=== PATIENT | female | born 1955 | race Caucasian/White ===

== ENCOUNTER → 2017-12-23 13:11 | Outpatient (CLI) | payer OTHER, SELFPAY ==
--- NOTE | 2017-12-23 | DI.US.S_ITS ---
PROCEDURE: US CAROTID DOPPLER BI INDICATIONS: LEFT EAR TINNITIUS/BILATERAL SENSORINEURAL HEARING TECHNIQUE: Color and pulse Doppler interrogation was performed of both carotid systems, with image documentation and velocity measurements. COMPARISON: None. FINDINGS: Stenosis calculations are based on SRU (S[employer] in [employer]) criteria. The flow velocities and the arterial waveforms are normal within both carotid arterial systems. No significant atherosclerotic plaque can be seen. The estimated degree of internal carotid artery stenosis is less than 50%. Antegrade flow is confirmed within both vertebral arteries. IMPRESSION: No hemodynamically significant stenosis is seen. Dictated by: Cole Amanda M.D. on 12/23/2017 at 14:42 Approved by: Cole Amanda M.D. on 12/23/2017 at 14:42
== END ==
PROVIDERS: PCP Physician Assistant Medical; Visit Provider Otolaryngology Facial Plastic Surgery
DX: H93.12 Tinnitus, left ear (principal); H90.3 Sensorineural hearing loss, bilateral
CPT/HCPCS: 93880

== ENCOUNTER → 2018-04-09 09:43 | Outpatient (CLI) | payer OTHER, SELFPAY ==
--- NOTE | 2018-04-09 09:45 | DI.MRI.S_ITS ---
PROCEDURE: MR SHOULDER LT WO CON INDICATIONS: LT SHOULDER PAIN TECHNIQUE: Noncontrast oblique coronal T2 fast spin echo with fat saturation, oblique sagittal T1 spin echo and T2 fast spin echo with fat saturation, axial T1 spin echo and T2 fast spin echo with fat saturation through the shoulder. COMPARISON: None. FINDINGS: Image quality: Excellent. Rotator cuff: The tendinosis and moderate grade articular and bursal surface partial-thickness tear involving distal supraspinatus at its insertion on greater tuberosity of humeral head extending to musculotendinous junction. Tendinosis and low grade articular and bursal surface partial-thickness tear involving distal infraspinatus at its insertion on greater tuberosity of humeral head extending to musculotendinous junction. Distal subscapularis tendinosis is seen. Sagittal images demonstrate mild supraspinatus muscle atrophy. Bones and bursae: No bone marrow contusions or fractures. 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 Mild glenohumeral joint osteoarthritis is also noted. The acromion demonstrates conventional anatomy, without an os acromiale. Small amount of fluid is seen within subacromial subdeltoid bursa. Capsule and soft tissues: In the absence of intra-articular contrast, there is signal abnormality and contour irregularity involving superior anterior labrum at 12 to 1:00 position. The glenohumeral ligaments appear intact. Tendinosis involving proximal intra-articular portion of the biceps tendon is seen. The rotator interval appears normal, without fibrosis. The coracohumeral ligament is normal in thickness. IMPRESSION: 1. Tendinosis and moderate grade articular and bursal surface partial-thickness tear involving distal supraspinatus at its insertion the humeral head extending to musculotendinous junction. Mild supraspinatus muscle atrophy. 2. Tendinosis and low-grade articular and bursal surface partial-thickness tear involving distal infraspinatus from its insertion the humeral head extending to musculotendinous junction. Distal subscapularis tendinosis. 3. Suggestion of focal superior anterior labral tear at 12 to 1:00 position. Tendinosis involving most proximal intra-articular portion of long head biceps tendon. Dictated by: Jarvis Mustafa M.D. on 04/11/2018 at 10:19 Approved by: Jarvis Mustafa M.D. on 04/11/2018 at 10:28
== END ==
PROVIDERS: PCP Physician Assistant Medical; Visit Provider Physician Assistant Medical
DX: M25.512 Pain in left shoulder (principal); M75.112 Incomplete rotator cuff tear or rupture of left shoulder, not specified as traumatic
CPT/HCPCS: 73221

== ENCOUNTER → 2018-11-21 06:16 | Outpatient (CLI) | payer BC, SELFPAY ==
--- NOTE | 2018-11-21 | DI.MRI.S_ITS ---
PROCEDURE: MR SHOULDER LT WO CON INDICATIONS: CHRONIC LEFT SHOULDER PAIN TECHNIQUE: Noncontrast oblique coronal T2 fast spin echo with fat saturation, oblique sagittal T1 spin echo and T2 fast spin echo with fat saturation, axial T1 spin echo and T2 fast spin echo with fat saturation through the shoulder. COMPARISON: [facility], MR, MR SHOULDER LT WO CON, 04/09/2018, 9:51. FINDINGS: Image quality: Excellent. Rotator cuff: Tendinosis and moderate grade articular and bursal surface partial-thickness tear involving distal supraspinatus and infraspinatus are seen at their insertions on greater tuberosity extending to the musculotendinous junction. Distal subscapularis tendinosis is seen. No full-thickness rotator cuff tendon rupture. Sagittal images demonstrate mild supraspinatus muscle atrophy. Bones and bursae: Mild to moderate acromioclavicular joint osteoarthritis is seen. No fracture or dislocation. Trace amount of fluid within subacromial subdeltoid bursa is seen. No gross intra-articular loose body. Capsule and soft tissues: In the absence of intra-articular contrast, there is suggestion of anterior inferior labral tear fell 4 to 6:00 position. The glenohumeral ligaments appear intact. The long head of the biceps tendon demonstrates normal location and morphology. The rotator interval appears normal, without fibrosis. The coracohumeral ligament is normal in thickness. IMPRESSION: 1. Tendinosis a moderate grade articular and bursal surface partial-thickness tear involving distal supraspinatus and infraspinatus at their insertion on greater tuberosity extending to musculotendinous junction. Distal subscapularis tendinosis. Mild supraspinatus muscle atrophy. 2. Mild to moderate acromioclavicular joint osteophytes. No fracture or dislocation. 3. Findings suggestive of anterior inferior labral tear 4 to 6:00 position. Superior labrum is grossly intact. Dictated by: Jarvis Mustafa M.D. on 11/21/2018 at 9:30 Approved by: Jarvis Mustafa M.D. on 11/21/2018 at 10:01
== END ==
PROVIDERS: PCP Registered Nurse; Visit Provider Orthopaedic Surgery
DX: M75.92 Shoulder lesion, unspecified, left shoulder (principal); M75.102 Unspecified rotator cuff tear or rupture of left shoulder, not specified as traumatic; M25.712 Osteophyte, left shoulder; M25.512 Pain in left shoulder
CPT/HCPCS: 73221